=== PATIENT | female | born 1970 | race Caucasian/White ===

== ENCOUNTER 2017-03-27 04:48 | Emergency (ER) | payer BC ==
[~2017-03-27 04:48] MED LIST: AMOXICILLIN875 MG PO; BACTRIM DS TABL1 TA1 PO; BENADRYL PO; FLEXERIL10 MG PO; NAPROSYN500 MG PO; NO MEDICATIONS; PARAFON FORTE500 M2 PO; PEPCID PO; VOLTAREN75 MG PO; ZITHROMAX1 G/PKT PO
[2017-03-27] MEDS ORDERED: CLARITIN10 M3 PO (04:59)
== END 2017-03-27 05:31 | disposition home or self-care (01) ==
LOC: SED 04:48
DX: K05.219 Aggressive periodontitis, localized, unspecified severity (principal); F17.210 Nicotine dependence, cigarettes, uncomplicated
CPT/HCPCS: 99282